=== PATIENT | male | born 1945 | race Asian ===

== ENCOUNTER 2016-07-13 11:28 | Day surgery (SDC) | payer OTHER ==
[2016-07-13] VITALS (7 sets, daily range): BP systolic 100–132; BP diastolic 54–68; PULSE 62–78; RESP 14–18; Ht 162.6 cm; Wt 78.0 kg
[~2016-07-13] VITALS: Ht 162.6 cm; Wt 78.0 kg
[~2016-07-13 11:28] MED LIST: AMLO-218 PO; APIX5TAB PO; CEFAZOLIN 1 GM INJ ONE; EPHEDrine SULFATE 50 MG/5 ML SYG ONE; LOVA40TA64 PO; VECURONIUM 10 MG VIAL ONE
[2016-07-13] MEDS ORDERED: TAMS-14 PO (12:09)
[2016-07-13] MEDS ORDERED: APIX5TAB PO (12:09)
[2016-07-13] MEDS ORDERED: ATEN-51 PO (12:10)
[2016-07-13] MEDS ORDERED: AMLO5TAB4 PO (12:10)
[2016-07-13] MEDS ORDERED: PARO-37 PO (12:11)
[2016-07-13] MEDS ORDERED: OXYCODONE/ACETAMINOPHEN (5/325) TAB PO PRN (13:30)
[2016-07-13] MEDS ORDERED: LABETALOL HCL 20MG INJ IV PRN (13:30)
[2016-07-13] MEDS ORDERED: ONDANSETRON 4 MG INJ IV PRN (13:30)
[2016-07-13] MEDS ORDERED: FENTAnyl 50 MCG/ML VIAL IV PRN (13:30)
[2016-07-13] MEDS ORDERED: PROCHLORPERAZINE 10 MG INJ IV PRN (13:30)
[2016-07-13] MEDS ORDERED: MEPERIDINE 25 MG INJ IV PRN (13:30)
[2016-07-13] MEDS ORDERED: hydrALAzine 20 MG INJ IV PRN (13:30)
[2016-07-13] MEDS ORDERED: DIPHENHYDRAMINE 50 MG INJ IV PRN (13:30)
[2016-07-13] MEDS ORDERED: FENTAnyl 50 MCG/ML VIAL ONE (15:17)
[2016-07-13] MEDS ORDERED: MIDAZOLAM 1 MG/ML 2 ML INJ ONE (15:17)
[2016-07-13] MEDS ORDERED: LIDOCAINE 2% (SDV) 5 ML INJ ONE (15:17)
[2016-07-13] MEDS ORDERED: PROPOFOL 20 ML ONE (15:17)
[2016-07-13] MEDS ORDERED: IOHEXOL 300MG/ML 30 ML BTL ONE (16:09)
[2016-07-13] MEDS ORDERED: HEPARIN 1000 UNITS/NS 500 ML BAG IV ONE (17:04)
[2016-07-13] MEDS ORDERED: ONDANSETRON 4 MG INJ ONE (17:18)
--- NOTE | 2016-07-13 17:37 | OPR ---
Date/Time of Note Date/Time of Note DATE: 07/13/16 TIME: 17:36 Operative Report Preoperative Diagnosis DVT Postoperative Diagnosis DVT Operation Performed IVC Filter removal Surgeon: LOLY TALAVERA MD Anesthesia: general Estimated Blood Loss: none Complications: None Pt Condition Post Procedure: stable Disposition: PACU LOLY TALAVREA MD July 13, 2016 17:37
--- NOTE | 2016-07-13 18:09 | OPR ---
DATE OF OPERATION: 07/13/2016 PREOPERATIVE DIAGNOSIS: Inferior vena cava filter. POSTOPERATIVE DIAGNOSIS: Inferior vena cava filter. OPERATION PERFORMED: 1. Removal of IVC filter. 2. Inferior venacavogram. 3. Catheter introduction into inferior vena cava. 4. Ultrasound guidance into the central vein. 5. Fluoroscopy. ANESTHESIA: General. ESTIMATED BLOOD LOSS: Minimal. CONSENT: Risks, benefits, complications, alternative therapies explained to the patient and the fam tricia, consent obtained. OPERATIVE TECHNIQUE: The patient was placed in supine position, prepped and draped in usual sterile fashion, 1% lidocaine was used throughout the operation for local anesthesia. Under ultrasonic vicky dance, access was gained in the right internal jugular vein. Guidewire was advanced through without any difficulty. Subcutaneous tissues dilated. The sheath was advanced over the guidewire into inf erior vena cava. Inferior venacavogram was done. No evidence of any clot was noted. The sheath wa s advanced over the filter which was then snared. The filter was removed in its entirety. The aline l venogram was done which showed no evidence of any extravasation of contrast. Patient tolerated pr ocedure well. Dictated By: LOLY ARRIAGA/NTS Conf#: [id number] DID#: [id number]
--- NOTE | 2016-07-13 21:02 | RADRPT ---
PROCEDURE: Intraoperative imaging of the abdomen with fluoroscopy. CLINICAL INDICATION: Inferior vena cava filter retrieval. Intraoperative. TECHNIQUE: 6 fluoroscopy runs and associated images of the abdomen were obtained in the operating room with an image intensifier. No radiologist was in attendance. 54 seconds of fluoroscopy time w as used. COMPARISON: No prior study is available for comparison. FINDINGS: Images demonstrate retrieval of an inferior vena cava filter. Images were interpreted at the time o f the study by the referring physician. IMPRESSION: 1. Intraoperative imaging of the abdomen. RPTAT: QQ .Samm Israel MD, MD Date Time Electronically viewed and signed by .Samm Israel MD, MD on 07/13/2016 21:02 .R/
== END 2016-07-13 18:43 | disposition home or self-care (01) ==
LOC: SDS 11:28
PROVIDERS: ATTEND Thoracic Surgery (Cardiothoracic Vascular Surgery)
DX: Z45.89 Encounter for adjustment and management of other implanted devices (principal); E78.5 Hyperlipidemia, unspecified; E66.9 Obesity, unspecified; Z68.29 Body mass index [BMI] 29.0-29.9, adult; Z86.718 Personal history of other venous thrombosis and embolism
CPT/HCPCS: 37193; 71020; 88300; J0690; J1644; J2250; J2405; J3010; Q9967